=== PATIENT | male | born 2000 | race Caucasian/White ===

== ENCOUNTER 2024-06-03 13:32 | Emergency (ER) | payer OTHER, SELFPAY ==
[2024-06-03 13:43] VITALS: BP 121/68; PULSE 55; RESP 16; TEMP 36.4; O2SAT 99
[2024-06-03 13:50] VITALS: BP 121/68; PULSE 55; RESP 16; TEMP 36.4; O2SAT 99
--- NOTE | 2024-06-03 14:12 | ED.GENADULT ---
HPI - General Adult General Chief complaint: Ear Stated complaint: Congestion/Left Ear Pain Source: patient Mode of arrival: ambulatory Limitations: no limitations History of Present Illness HPI narrative: Pt presents for evaluation of sick symptoms for the past four days. His initial symptom was sinus congestion. He then developed a sore throat and now has left sided ear pain. He feels like the ear is fluid in his left ear. He denies any fever, chills, cough, shortness of breath, nausea, vomiting, diarrhea. No recent sick contacts to his knowledge. He does not smoke. Related Data Allergies Allergy/AdvReac Type Severity Reaction Status Date / Time No Known Allergies Allergy Verified 06/03/24 13:39 Review of Systems Review of Systems: CONSTITUTIONAL: Denies fever, chills, or sweats. EYES: Denies visual changes, redness, or discharge. ENT: Reports sinus congestion, left sided otalgia, sensation of fluid in the left ear and mild sore throat. CARDIOVASCULAR: Denies chest pain, palpitations, or edema. RESPIRATORY: Denies cough or dyspnea. GASTROINTESTINAL: Denies abdominal pain, nausea, vomiting, or diarrhea. GENITOURINARY: Denies dysuria or hematuria. SKIN: Denies rash or itching. MUSCULOSKELETAL: Denies back pain, joint pain, or myalgia. NEUROLOGIC: Denies headache, numbness, dizziness, or weakness. PSYCHIATRIC: Denies anxiety or depression. PMFSH Past Medical History Medical History No pertinent past medical history Surgical History Surgical History No pertinent past surgical history Family History Family History (Updated 06/03/24 @ 14:18 by Zay Minor, [facility], ) Mother Family history non-contributory Social History Social History (Updated 06/03/24 @ 14:24 by Zay Minor, [facility], ) Smoking status: Never smoker Substance use: never Gender identity (if verbalized by the patient): Male Spiritual care concerns: No Exam Narrative: GENERAL: Well-appearing, well-nourished, and in no acute distress. HEAD: Normocephalic, atraumatic. EYES: PERRLA and EOMI. ENT: Nares clear, no rhinorrhea or epistaxis. Mucous membranes moist. Oropharynx without tonsillar hypertrophy exudate or other lesions. Left tympanic membrane is erythematous and bulging NECK: Supple. No adenopathy or masses. No carotid bruits or JVD CHEST: Clear to auscultation. No respiratory distress. No wheezes rales or rhonchi HEART: Regular rate and rhythm. No murmur heard. Normal peripheral pulses. ABDOMEN: Soft, nontender, nondistended, normal active bowel sounds. EXTREMITIES: Normal range of motion. No edema. SKIN: Warm, dry, no rash. NEURO: No focal deficits. Alert and oriented x3. PSYCH: Normal mood and affect. Course Course Emergency Course: This is a 24-year-old male who presented for evaluation of sick symptoms. He has evidence of otitis media on exam. Will treat with Augmentin. Increase hydration. [id number] agents for symptom management. Follow up with primary provider. Go to the ER for worsening symptoms. Patient in agreement with plan care. Level of Care: Express Care Visit Vital Signs Vital signs: Vital Signs Temperature 36.4 C L 06/03/24 13:43 Pulse Rate 55 L 06/03/24 13:43 Respiratory Rate 16 06/03/24 13:43 Blood Pressure 121/68 06/03/24 13:43 Pulse Oximetry 99 06/03/24 13:43 Oxygen Delivery Room Air 06/03/24 13:43 Temperature 36.4 C L 06/03/24 13:50 Pulse Rate 55 L 06/03/24 13:50 Respiratory Rate 16 06/03/24 13:50 Blood Pressure 121/68 06/03/24 13:50 Pulse Oximetry 99 06/03/24 13:50 Oxygen Delivery Room Air 06/03/24 13:50 Medical Decision Making Vital Signs Vital Signs: Vital Signs Temperature 36.4 C L 06/03/24 13:43 Pulse Rate 55 L 06/03/24 13:43 Respiratory Rate 06/03/24 13:43 Blood Pressure 12
== END 2024-06-03 13:54 | disposition home or self-care (01) ==
PROVIDERS: Emergency Provider Nurse Practitioner
DX: H66.92 Otitis media, unspecified, left ear (principal)
CPT/HCPCS: 99203; G0463

== ENCOUNTER 2024-09-27 17:28 | Emergency (ER) | payer OTHER, SELFPAY ==
[2024-09-27 17:52] VITALS: BP 134/84; PULSE 92; RESP 20; TEMP 37.8; O2SAT 100
--- NOTE | 2024-09-27 19:03 | ED_ITS ---
HPI - URI/Sore Throat General Chief Complaint: Upper Respiratory Infection Stated Complaint: chest tight/throat/cough Time Seen by Provider: 09/27/24 18:50 Source: patient, RN notes reviewed and old records reviewed Mode of arrival: ambulatory Limitations: no limitations History of Present Illness HPI Narrative: 24 year old male accompanied by significant other with complaints of being diagnosed with Noro virus on Tuesday and he has been off work till he went back today and as day has progressed he has felt worse. Patient reports that he has coughed so hard he has vomited, his chest feels heavy with cough has some intermittent dizziness. sore throat and some dyspnea with exertion. and he has some fevers. Patient reports that he has taken Tylenol and Ibuprofen and cough med. MD elicited complaint: fever, cough, sore throat, nasal congestion and other Pertinent past history: other (Noro virus diagnosed Tuesday) Onset (ago): day(s) (5 days with increase today) Consistency: other (increased symptoms today) Pain scale (0-10): 7 Able to tolerate fluids by mouth: Yes Exacerbating factors: swallowing and exertion Treatments prior to arrival: acetaminophen, ibuprofen and other (cough med) Related Data Allergies Allergy/AdvReac Type Severity Reaction Status Date / Time hydrocodone Allergy Intermediate Rash Verified 09/27/24 18:19 Review of Systems Review of Systems: CONSTITUTIONAL: Reports malaise, chills, sweats, or fever. EYES: Denies visual changes, redness, or discharge. ENT: Reports rhinorrhea, congestion,no sinus pain, no otalgia and positive for sore throat. CARDIOVASCULAR: Denies chest pain, palpitations, or edema. RESPIRATORY: Reports cough with heaviness to chest with cough and some SCHRADER? GASTROINTESTINAL: Denies abdominal pain, no nausea, vomiting with cough, no diarrhea SKIN: Denies rash or itching. MUSCULOSKELETAL: Denies myalgia. NEUROLOGIC: Denies headache.reports some intermittent dizziness All systems reviewed & are unremarkable except as noted in HPI and below PMFSH Past Medical History Medical History Norovirus Surgical History Surgical History No pertinent past surgical history Family History Family History Mother Family history non-contributory Social History Social History Smoking status: Current every day smoker Tobacco type: e-cigarettes/vaping Alcohol intake: current Alcohol use details: social Substance use: never Gender identity (if verbalized by the patient): Male Spiritual care concerns: No Comments At time of signature, agree with nursing past medical, surgical, social and family history. There is no relevant family history pertinent to the presenting complaint Exam Narrative: GENERAL:ill-appearing, well-nourished, and in no acute distress. HEAD: Normocephalic EYES: PERRLA, conjunctivae clear ENT: Nares clear, turbinates edematous and erythematous, clear discharge. Mucous membranes moist. TM pearly courtney with dull light reflex bilaterally; no tragal tenderness. Oropharynx erythematous without lesions. Tonsils not enlarged and without exudate, no drooling, no hoarseness, no trismus, uvula midline.post nasal drainage NECK: Supple. No lymphadenopathy CHEST: Clear to auscultation, breath sounds equal. No wheezing, rhonchi, rales, or stridor. No respiratory distress, speaks in full sentences. dry cough noted SAO2 100% on room air, reports heavy feeling to chest with cough and has vomited with cough HEART: Regular rate and rhythm. No murmur heard. SKIN: Warm, dry, no rash. NEURO: Alert and oriented x3. PSYCH: Normal mood and affect Course Course Emergency Course: Patient is aware of diagnosis, understands and agrees to treatment plan.? Anticipatory guidance given.? Patient agrees to follow-up as directed and is aware of reasons to seek care at the emergency department. Portions of this record may have been created with voice recognition software Level of Care: Express Care Visit Vital Signs Vital signs: Vital Signs Temperature 37.8 C H 09/27/24 17:52 Pulse Rate 92 09/27/24 17:52 Respiratory Rate 20 09/27/24 17:52 Blood Pressure 134/84 09/27/24 17:52 Pulse Oximetry 100 09/27/24 17:52 Oxygen Delivery Room Air 09/27/24 17:52 Temperature 37.8 C H 09/27/24 17:52 Pulse Rate 92 09/27/24 17:52 Respiratory Rate 20 09/27/24 17:52 Blood Pressure 134/84 09/27/24 17:52 Pulse Oximetry 100 09/27/24 17:52 Oxygen Delivery Room Air 09/27/24 17:52 Reviewed MDM - URI/Sore Throat MDM Narrative Medical decision making narrative: Differential diagnosis considered: Dumont virus, strep pharyngitis, allergic rhinitis, upper respiratory tract infection, sinusitis, rhinosinusitis, nasopharyngitis. viral pharyngitis, otitis media, otitis externa, pneumonia, bronchitis, viral cough syndrome, viral syndrome, and influenza.? Exam findings show no acute concerns or changes; patient is non-toxic appearing and is in no distress.? Patient is appropriate for outpatient treatment and follow-up. Differential Diagnosis Differential diagnosis: Likely upper respiratory infection, sinusitis, viral infection, influenza, pharyngitis and other (acute cough) Lab Data Attestation: I reviewed the patient's lab results. Lab results narrative: strep screen negative, culture sent, Influenza A negative,Influenza B negaitive, COVID antigen negative Labs: Lab Results 09/27/24 Range/Units 19:05 POC Influenza A Ag Negative (Negative) POC Influenza B Ag Negative (Negative) POC SARS CoV-2 Ag Negative (Negative) POC Grp A Strep Screen Negative (Negative) reviewed Critical Care Time Critical Care Time Critical Care Time: No Discharge Plan Discharge Clinical Impression: Viral syndrome, Costochondritis Patient Disposition: Home, Self-Care Condition: Stable Instructions: Costochondritis (ED), Viral Syndrome (ED) Additional Instructions: Increase fluids especially juices and water [id number] cough and cold medicine of your choice for your symptoms Tylenol or ibuprofen for any fever pain Steroids as directed--take with food heat to the face 20-30 minutes 4-6 times a day for pain Salt water gargles, throat lozenges or throat sprays as desired Steroids as prescribed for general discomfort with coughing Patient do not go to work tomorrow to wait and return on Tuesday If your symptoms persist, change or worsen significantly before you can contact your personal physician then please, without delay, go to the emergency department for further evaluation. Follow-up with PCP in 7-10 days or sooner if needed Follow up with PCP soon in regards to your blood pressure which is elevated above threshold for referral. Blood pressure above 120/80 may indicate pre- hypertension. 134/84 Patient Language: Urdu Prescriptions: New prednisone 50 mg tablet 50 mg PO DAILY Qty: 5 0RF Rx Instructions: start prescription tomorrow take with food Follow-up/Referrals: PHYSICIAN,MANUFACTURING PLANT TECHNICIAN [Primary Care Provider] - Stand Alone Forms: Work/School Release IP Time of Disposition: 19:12 Quality Cassandra Coma Scale Eyes: Open Verbal: Oriented and Alert Motor: Follows Commands [place] Coma Total Score: 15
[2024-09-27 19:08] LABS: EDCOVIDSCREEN Negative (Negative); EDINFLUASCREEN Negative (Negative); EDINFLUBSCREEN Negative (Negative); EDSTREPNEGPOS1 Negative (Negative)
== END 2024-09-27 19:16 | disposition home or self-care (01) ==
PROVIDERS: Emergency Provider Registered Nurse
DX: B34.9 Viral infection, unspecified (principal); M94.0 Chondrocostal junction syndrome [Tietze]; Z20.822 Contact with and (suspected) exposure to COVID-19; F17.290 Nicotine dependence, other tobacco product, uncomplicated
CPT/HCPCS: 87081; 87426; 87804; 87880; 99213; G0463